=== PATIENT | female | born 2000 | race Caucasian/White ===

== ENCOUNTER 2021-06-01 18:53 | Emergency (ER) | payer BC ==
[2021-06-01] MEDS ORDERED: Cephalexin 500 MG Cap PO STA (23:34)
--- NOTE | 2021-06-01 23:36 | EDM.PDOC ---
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 The patient states that approximately 3 and half hours prior to arrival she started to experience vaginal bleeding and passage of one clot. She states that she is experiencing some mild pelvic cramping which she describes as cramping rated 1-2 out of 10 without any radiation. She denies any loss of fluid. She denies any other vaginal discharge, dysuria or hematuria. She states that she is concerned that she may have a miscarriage. 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 She states that this is her first . She has not taken anything for the pain. She states that the vaginal bleeding has decreased. She states that she is currently experiencing 0 out of 10 pain. There are no exacerbating relieving factors. REVIEW OF SYSTEMS: Constitutional: Denies fever, chills. Eyes: Denies eye pain Ears, Nose, Mouth, & Throat: Denies earache Cardiovascular: Denies chest pain Respiratory: Denies shortness of breath Gastrointestinal: Denies Nausea, vomiting, diarrhea, hematochezia. Genitourinary: Positive for vaginal bleeding and clots. Denies hematuria, vaginal discharge, dysuria Skin:Denies a rash MSK: Denies joint pain Neurological: Denies blurred vision Psychiatric: Denies depression PAST MEDICAL HISTORY: As per history of present illness and as reviewed below otherwise noncontributory. SURGICAL HISTORY: As per history of present illness and as reviewed below otherwise noncontributory. LMP: Approximately 10 weeks prior SOCIAL HISTORY: As per history of present illness and as reviewed below otherwise noncontributory. FAMILY HISTORY: As per history of present illness and as reviewed below otherwise noncontributory. EXAMINATION OF ORGAN SYSTEMS/BODY AREAS: Constitutional: Blood pressure is 120/57, heart rate 57, respiratory rate 17 with an oxygen saturation of 100% on room air. Temperature 36.8 General: Well-appearing woman who is in no acute distress Psychiatric: Appropriate mood and affect. Eyes: No scleral icterus or conjunctival erythema ENMT: Moist mucous membranes. No pharyngeal erythema Cardiovascular: Regular, rate, and rhythm. No gallops, murmurs, or rubs. Bilateral upper extremity pulses symmetric and intact. No peripheral edema. No JVD. Respiratory: Lungs clear to auscultation bilaterally. No wheezes, rales, or rhonchi. Gastrointestinal: Soft, non-tender, non-distended. Normoactive bowel sounds Genitourinary: No suprapubic tenderness no CVA tenderness Musculoskeletal: Normal range of motion. Skin: No lesions or abrasions. Neurological: Alert, GCS 15 MEDICAL DECISION MAKING AND COURSE IN THE ED WITH INTERPRETATION/REVIEW OF DIAGNOSTIC STUDIES: This is a 21-year-old man who is approximately 10 weeks gestation who comes to the emergency department with vaginal bleeding and clots who has normal vital signs. The patient states that the vaginal bleeding has decreased however we will obtain CBC, quantitative hCG, urinalysis and a type and screen. Will perform a bedside ultrasound given the patient has already had a formal ultrasound of her shoe stamper office. Bedside transabdominal OB ultrasound Multiple views were obtained which did reveal a single live intrauterine . Placenta was near the cervical canal. heart tones were normal. No evidence of free fluid or subchorionic hemorrhage. Given the location of the placenta on ultrasound we will forego bimanual examination. I did discuss with the patient she was amenable to this plan. Laboratory: CBC is unremarkable. Quantitative hCG is 117,927. Urinalysis reveals ketonuria with a moderate amount of blood with leukocyte esterase and 2- 3 WBCs. Blood type is O+ After labs I did provide the patient with Keflex and sent a urine culture. I did discuss that she would need to take Keflex at home. She was given strict return precautions. The patient was amenable discharge and had no further questions. DISPOSITION: The patient was discharged home in stable condition. The patient will follow up with her shoe stamper in 3 to 5 days CONDITION: Fair PROCEDURES: Bedside transabdominal OB ultrasound FINAL IMPRESSION(S)/DIAGNOSES: 1. Acute threatened 2. Acute urinary tract infection Dillon Butler M.D. - Related Data Allergies Allergy/AdvReac Type Severity Reaction Status Date / Time No Known Allergies Allergy Verified 06/01/21 20:56 Home Meds: Home Meds cephALEXin [Keflex] 500 mg PO BID #6 cap 06/01/21 [Rx] Past Medical History - Past Health History Medical/Surgical History: Denies Medical/Surgical History - Infectious Disease History Infectious Disease History: Reports: Chicken Pox Social & Family History - Family History Family Medical History: No Pertinent Family History - Tobacco Use Tobacco Use Status *Q: Never Tobacco User - Caffeine Use Caffeine Use: Reports: None - Recreational Drug Use Recreational Drug Use: No ED ROS GENERAL - Review of Systems Review Of Systems: See Below ED EXAM, GENERAL - Physical Exam Exam: See Below Course - Vital Signs Last Recorded V/S: Last Vital Signs Temp 36.8 C 06/01/21 20:56 Pulse 57 L 06/01/21 20:56 Resp 17 06/01/21 20:56 BP 120/57 L 06/01/21 20:56 Pulse Ox 100 06/01/21 20:56 - Orders/Labs/Meds Labs: Laboratory Tests 06/01/21 06/01/21 06/01/21 Range/Units 22:20 22:22 22:22 WBC 9.84 (4.0-11.0) K/uL RBC 4.39 (4.30-5.90) M/uL Hgb 13.3 (12.0-16.0) g/dL Hct 37.2 (36.0-46.0) % MCV 84.7 (80.0-98.0) fL MCH 30.3 (27.0-32.0) pg MCHC 35.8 (31.0-37.0) g/dL RDW Std Deviation 37.3 (28.0-62.0) fl RDW Coeff of Oliver 12 (11.0-15.0) % Plt Count 280 (150-400) K/uL MPV 9.30 (7.40-12.00) fL Neut % (Auto) 66.3 (48.0-80.0) % Lymph % (Auto) 25.5 (16.0-40.0) % [place] % (Auto) 7.1 (0.0-15.0) % Eos % (Auto) 0.9 (0.0-7.0) % Baso % (Auto) 0.2 (0.0-1.5) % Neut # (Auto) 6.5 H (1.4-5.7) K/uL Lymph # (Auto) 2.5 H (0.6-2.4) K/uL [place] # (Auto) 0.7 (0.0-0.8) K/uL Eos # (Auto) 0.1 (0.0-0.7) K/uL Baso # (Auto) 0.0 (0.0-0.1) K/uL Nucleated RBC % 0.0 /100WBC Nucleated RBCs # 0 K/uL HCG, Quant 496586.0 mIU/mL Urine Color YELLOW Urine Appearance HAZY Urine pH 5.5 (5.0-8.0) Ur Specific [place] Level 1.025 (1.001-1.035) Urine Protein NEGATIVE (NEGATIVE) mg/dL Urine Glucose (UA) NEGATIVE (NEGATIVE) mg/dL Urine Ketones TRACE H (NEGATIVE) mg/dL Urine Occult Blood MODERATE H (NEGATIVE) Urine Nitrite NEGATIVE (NEGATIVE) Urine Bilirubin NEGATIVE (NEGATIVE) Urine Urobilinogen 0.2 (<2.0) EU/dL Ur Leukocyte Esterase SMALL H (NEGATIVE) Urine RBC 1-3 (0-2/HPF) Urine WBC 2-4 (0-5/HPF) Ur Epithelial Cells FEW (NONE-FEW) Urine Bacteria FEW (NEGATIVE) Urine Mucus LIGHT (NONE-MOD) Blood Type 06/01/21 Range/Units 22:22 WBC (4.0-11.0) K/uL RBC (4.30-5.90) M/uL Hgb (12.0-16.0) g/dL Hct (36.0-46.0) % MCV (80.0-98.0) fL MCH (27.0-32.0) pg MCHC (31.0-37.0) g/dL RDW Std Deviation (28.0-62.0) fl RDW Coeff of Oliver (11.0-15.0) % Plt Count (150-400) K/uL MPV (7.40-12.00) fL Neut % (Auto) (48.0-80.0) % Lymph % (Auto) (16.0-40.0) % [place] % (Auto) (0.0-15.0) % Eos % (Auto) (0.0-7.0) % Baso % (Auto) (0.0-1.5) % Neut # (Auto) (1.4-5.7) K/uL Lymph # (Auto) (0.6-2.4) K/uL [place] # (Auto) (0.0-0.8) K/uL Eos # (Auto) (0.0-0.7) K/uL Baso # (Auto) (0.0-0.1) K/uL Nucleated RBC % /100WBC Nucleated RBCs # K/uL HCG, Quant mIU/mL Urine Color Urine Appearance Urine pH (5.0-8.0) Ur Specific [place] Level (1.001-1.035) Urine Protein (NEGATIVE) mg/dL Urine Glucose (UA) (NEGATIVE) mg/dL Urine Ketones (NEGATIVE) mg/dL Urine Occult Blood (NEGATIVE) Urine Nitrite (NEGATIVE) Urine Bilirubin (NEGATIVE) Urine Urobilinogen (<2.0) EU/dL Ur Leukocyte Esterase (NEGATIVE) Urine RBC (0-2/HPF) Urine WBC (0-5/HPF) Ur Epithelial Cells (NONE-FEW) Urine Bacteria (NEGATIVE) Urine Mucus (NONE-MOD) Blood Type O POSITIVE Meds: Medications Discontinued Medications Generic Name Dose Route Start Last Admin Trade Name Freq PRN Reason Stop Dose Admin Cephalexin 500 mg 06/01/21 23:34 06/01/21 23:48 Cephalexin 500 Mg Cap PO 06/01/21 23:35 500 mg ONETIME STA Administration Departure - Departure Time of Disposition: 23:35 Disposition: Home, Self-Care 01 Condition: Fair Clinical Impression: Threatened , UTI (urinary tract infection) - Discharge Information *PRESCRIPTION DRUG MONITORING PROGRAM REVIEWED*: No *COPY OF PRESCRIPTION DRUG MONITORING REPORT IN PATIENT KAUSHAL: No Prescriptions: cephALEXin [Keflex] 500 mg PO BID #6 cap Instructions: Urinary Tract Infection, Adult, [id number], Threatened Miscarriage, [id number] Referrals: PCP,None [Primary Care Provider] - Forms: ED Department Discharge Additional Instructions: You were evaluated today on an emergent basis. At this time the bedside ultrasound did reveal normal heart rate and everything appeared to be normal on ultrasound. As discussed vaginal bleeding in the first trimester does increase your chance of an actual miscarriage. I recommend if you have any worsening bleeding, passage of clots or worsening pain you return to the emergency department. It is going to be important that you follow-up with your shoe stamper for reevaluation. In addition your urinalysis did show some bacteria. Current recommendations are to treat for urinary tract infection. We did provide you with Keflex here in the emergency department. I recommend you take this twice a day for the next 3 days. If you have any concerns please return to the emergency department otherwise follow-up with OB. [facility] [address] [place] [id number] [facility] [address] [place] [id number] The patient is informed of any results of their evaluation and diagnostic workup and all questions are answered. They are given discharge instructions and return precautions. The patient is stable for discharge. The patient states they understand and agree with the plan and that they will return if their symptoms get worse or if they have any new concerns. The following information is given to patients seen in the emergency department who are being discharged to home. This information is to outline your options for follow-up care. We provide all patients seen in our emergency department with a follow-up referral. The need for follow-up, as well as the timing and circumstances, are variable depending upon the specifics of your emergency department visit. If you don't have a primary care physician on staff, we will provide you with a referral. We always advise you to contact your personal physician following an emergency department visit to inform them of the circumstance of the visit and for follow-up with them and/or the need for any referrals to a consulting specialist. The emergency department will also refer you to a specialist when appropriate. This referral assures that you have the opportunity for follow-up care with a specialist. All of these measure are taken in an effort to provide you with optimal care, which includes your follow-up. Under all circumstances we always encourage you to contact your private caroline nicholson who remains a resource for coordinating your care. When calling for follow-up care, please make the office aware that this follow-up is from your recent emergency room visit. If for any reason you are refused follow-up, please contact the [facility] Emergency Department at and asked to speak to the emergency department charge nurse. Sepsis Event Note (ED) - Evaluation Sepsis Screening Result: No Definite Risk
== END 2021-06-01 23:49 | disposition home or self-care (01) ==
LOC: MW.ED 18:53 → MERGE 18:53 → MW.ED 23:49
DX: O20.0 Threatened abortion (principal); O23.41 Unspecified infection of urinary tract in pregnancy, first trimester; N39.0 Urinary tract infection, site not specified; Z3A.10 10 weeks gestation of pregnancy
CPT/HCPCS: 36415; 81001; 84702; 85025; 86900; 86901; 87086; 99284; A9270

== ENCOUNTER 2021-12-29 05:31 | Inpatient (IN) | payer BC ==
[2021-12-29] MEDS ORDERED: Sodium Chloride 0.9% 20 ML SDV IV PRN (06:05)
[2021-12-29] MEDS ORDERED: Ondansetron 4 MG/2 ML SDV IVPUSH PRN (06:05)
[2021-12-29] MEDS ORDERED: Misoprostol 200 MCG Tab PO PRN (06:05)
[2021-12-29] MEDS ORDERED: Tranexamic Acid 1,000 MG in Sodium Chloride 0.9% 100 ML IV PRN (06:05)
[2021-12-29] MEDS ORDERED: Sodium Chloride 0.9% 10 ML Syringe FLUSH PRN (06:05)
[2021-12-29] MEDS ORDERED: Lidocaine 1% 50 ML MDV INJECT PRN (06:05)
[2021-12-29] MEDS ORDERED: Water For Irrigation,Sterile 1,000 ML Container IRR PRN (06:05)
[2021-12-29] MEDS ORDERED: Sodium Chloride 0.9% 2.5 ML Syringe FLUSH PRN (06:05)
[2021-12-29] MEDS ORDERED: Methylergonovine 0.2 MG/1 ML Amp IM PRN (06:05)
[2021-12-29] MEDS ORDERED: Butorphanol 1 MG/ML SDV IVPUSH PRN (06:05)
[2021-12-29] MEDS ORDERED: Carboprost Tromethamine 250 MCG/1 ML Amp IM PRN (06:05)
[2021-12-29] MEDS ORDERED: Oxytocin/0.9 % Sodium Chloride 30 UNIT/500 ML BAG IV SCH (06:15)
[2021-12-29] MEDS ORDERED: Ampicillin 2 GM in Sodium Chloride 0.9% 100 ML IV ONE (06:30)
[2021-12-29] MEDS: Lactated Ringers 1,000 ML IV SCH ×2 (06:45→07:46)
[2021-12-29] MEDS ORDERED: Ropivacaine in NACL,ISO-OSM/PF 400 ML ONE (07:06)
[2021-12-29] MEDS ORDERED: ePHEDrine 50 MG/ML SDV IVPUSH PRN ×2 (07:18)
[2021-12-29] MEDS ORDERED: Ropivacaine in NACL,ISO-OSM/PF 800 MG in Premix Bag 1 BAG EPIDUR SCH ×2 (07:30)
[2021-12-29 08:15] LABS: BLOOD UREA NITROGEN,BUN 8 mg/dL (7.0-18.0); CARBON DIOXIDE,CO2 20.1 mmol/L (21.0-32.0); CHLORIDE,CL 103 mmol/L (98-107); GLUCOSE RANDOM 99 mg/dL (74-106); POTASSIUM,K 3.6 mmol/L (3.5-5.1); SODIUM,NA 136 mmol/L (136-145)
[2021-12-29] MEDS ORDERED: Ampicillin 1 GM in Sodium Chloride 0.9% 50 ML IV SCH (11:00)
[2021-12-29] MEDS ORDERED: Ibuprofen 400 MG Tab PO PRN (14:47)
[2021-12-29] MEDS ORDERED: oxyCODONE 5 MG Tab PO PRN (14:47)
[2021-12-29] MEDS ORDERED: Benzocaine/Menthol 20%-0.5% Spray 78 GM Cannister TOP PRN (14:47)
[2021-12-29] MEDS ORDERED: Bisacodyl 10 MG Supp RECTAL PRN (14:47)
[2021-12-29] MEDS ORDERED: Lanolin 100% Cream 7 GM Tube TOP PRN (14:47)
[2021-12-29] MEDS ORDERED: Acetaminophen 500 MG Tab PO PRN (14:47)
[2021-12-29] MEDS ORDERED: Hydrocortisone 1% Crm 30 GM Tube TOP PRN (14:51)
[2021-12-29] MEDS: Ibuprofen 800 MG Tab PO PRN (17:17)
[2021-12-29] MEDS: Witch Hazel Medicated Pads 40/Jar TOP PRN (17:18)
[2021-12-30] MEDS: Ibuprofen 800 MG Tab PO PRN ×2 (04:17→18:03)
[2021-12-30] MEDS: Acetaminophen 500 MG Tab PO PRN ×2 (07:57→18:06)
[2021-12-30] MEDS: Witch Hazel Medicated Pads 40/Jar TOP PRN (16:47)
[2021-12-30] MEDS: Docusate Sodium 100 MG Cap PO PRN (16:47)
[2021-12-31] MEDS: Acetaminophen 500 MG Tab PO PRN ×2 (01:38→08:39)
[2021-12-31] MEDS: Docusate Sodium 100 MG Cap PO PRN (08:38)
== END 2021-12-31 13:20 | disposition home or self-care (01) | DRG 560 ==
LOC: MW.OBCHECK 05:31 → MW.OB 05:32 → OBSVTOIN 14:16 → MW.OB 18:26
PROVIDERS: ADMIT Obstetrics & Gynecology; ATTEND Obstetrics & Gynecology
PROC: 10D07Z6 Extraction of Products of Conception, Vacuum, Via Natural or Artificial Opening (ICD-10-PCS; principal; 2021-12-29)
PROC: 3E0R3BZ Introduction of Anesthetic Agent into Spinal Canal, Percutaneous Approach (ICD-10-PCS; 2021-12-29)
PROC: 00HU33Z Insertion of Infusion Device into Spinal Canal, Percutaneous Approach (ICD-10-PCS; 2021-12-29)
PROC: 0HQ9XZZ Repair Perineum Skin, External Approach (ICD-10-PCS; 2021-12-29)
PROC: 0UQMXZZ Repair Vulva, External Approach (ICD-10-PCS; 2021-12-29)
DX: O99.824 Streptococcus B carrier state complicating childbirth (principal); Z3A.40 40 weeks gestation of pregnancy; Z37.0 Single live birth; O76 Abnormality in fetal heart rate and rhythm complicating labor and delivery; O69.81X0 Labor and delivery complicated by cord around neck, without compression, not applicable or unspecified; O70.0 First degree perineal laceration during delivery; O71.82 Other specified trauma to perineum and vulva; Z20.822 Contact with and (suspected) exposure to COVID-19
CPT/HCPCS: 36415; 51701; 51702; 59025; 59409; 80053; 82803; 85014; 85018; 85027; 86592; 86850; 86900; 86901; A9270-GY; J0290; J2590; J2795; J7120; U0002